=== PATIENT | female | born 1995 | race Caucasian/White ===

== ENCOUNTER 2016-04-06 03:21 | Emergency (ER) | payer OTHER ==
[~2016-04-06] VITALS: Ht 154.9 cm; Wt 54.4 kg
--- NOTE | 2016-04-06 03:21 | NUR ---
Patient [facility] patrol and taken to [facility].
[2016-04-06 03:22] VITALS: BP 149/85
--- NOTE | 2016-04-06 03:22 | NUR ---
20/ BIB P C/O PRE BOOK. [facility] OFFICER STATES PATIENT WAS IN T/C. SIDE VP [employer]AS[employer] DEPLOYED. PT DENIES KO OR LOC. ERMD NOTIFED OF PATIENT STATUS.
--- NOTE | 2016-04-06 03:26 | NUR ---
Dr. Kolb evaluating patient at bedside.
--- NOTE | 2016-04-06 03:44 | NUR ---
PATIENT BIB [facility]. PATIENT EXAMINED BY DR. JOY. PATIENT MEDICALLY CLEARED AND RELEASED IN CUSTODY IN STABLE CONDITION. ORIGINAL PRE-BOOK FORM GIVEN TO OFFICER BINTA.
[2016-04-06 03:45] VITALS: BP 149/85
== END 2016-04-06 03:44 ==
LOC: MED 03:21
DX: T14.90 Injury, unspecified (principal); V89.2XXA Person injured in unspecified motor-vehicle accident, traffic, initial encounter; Y93.89 Activity, other specified; Y92.89 Other specified places as the place of occurrence of the external cause; Y99.8 Other external cause status